=== PATIENT | male | born 1940 | race Caucasian/White ===

== ENCOUNTER 2018-10-04 10:22 | Emergency (ER) | payer MEDICARE, MEDICAID ==
[~2018-10-04] VITALS: Ht 177.8 cm; Wt 72.6 kg
--- NOTE | 2018-10-04 10:23 | NUR ---
ARRIVED VIA EMS. PT TRANSFERRED TO CT BY [facility] AND EMS.
--- NOTE | 2018-10-04 10:50 | Diagnostic Imaging Report ---
Clinical indication: Patient fell backwards. Exam: Axial CT scan cervical spine performed without IV contrast. Coronal and sagittal reformatted images are created. Comparison: None. Findings: There is no acute cervical spine fracture. There is multilevel cervical spine degenerative disease including mild kyphosis of the cervical spine posture centered at the C5-C6 level. There is grade 1 anterolisthesis C3 on C4 and C4 on C5 with no pars defect and is likely degenerative. There is multilevel cervical spine vertebral body spurs and facet arthropathy. There is at least severe right C3-C4 neural foramen narrowing and moderate left C5-C6 neural foramen narrowing due to uncinate spurs of facet arthropathy. There is at least mild to moderate central canal narrowing seen throughout cervical spine. Prominent vascular structure seen posteriorly along the C3 vertebra. There is no prevertebral soft tissue swelling. The neck soft tissue structures show no significant abnormality. Visualized upper lung rodriguez show mild atelectasis or scarring. Impression: 1: There is no acute cervical spine fracture. 2: There is multilevel cervical spine degenerative disease including grade 1 anterolisthesis of C3 on C4 and C4 on C5. Dictated by: Dictated on workstation # [id number]
[2018-10-04 11:01] LABS: BASOPHILS % (AUTO) 1 % (0-10); EOSINOPHILS # (AUTO) 0.2 10^3/uL (0.0-0.3); EOSINOPHILS % (AUTO) 3 % (0-10); HEMATOCRIT 32 % (40-54); HEMOGLOBIN 10.4 G/DL (13.3-17.7); LYMPHOCYTES # (AUTO) 1.3 X 10^3 (1.0-4.0); LYMPHOCYTES % (AUTO) 19 % (12-44); MEAN CORPUSCULAR HEMOGLOBIN 30 PG (25-34); MEAN CORPUSCULAR HGB CONC 32 G/DL (32-36); MEAN CORPUSCULAR VOLUME 91 FL (80-99); MEAN PLATELET VOLUME 10.1 FL (7.4-10.4); MONOCYTES # (AUTO) 0.4 X 10^3 (0.0-1.0); MONOCYTES % (AUTO) 6 % (0-12); NEUTROPHILS # (AUTO) 4.7 X 10^3 (1.8-7.8); NEUTROPHILS % (AUTO) 72 % (42-75); PLATELET COUNT 153 10^3/uL (130-400); RED CELL DISTRIBUTION WIDTH 13.3 % (10.0-14.5); WHITE BLOOD COUNT 6.6 10^3/uL (4.3-11.0)
--- NOTE | 2018-10-04 11:05 | Diagnostic Imaging Report ---
CLINICAL INDICATION: Patient walking to breakfast and fell backwards hitting head. The patient had loss of consciousness for 3-4 minutes with laceration to the back of the head with some slurred speech. EXAM: Axial CT scan of the brain performed without IV contrast. COMPARISON: None. FINDINGS: There is a small area of hyperdensity in the interpeduncular fossa region, concerning for minimal subarachnoid blood. There is an area of high density involving the right frontal region seen on axial sequence 2/image 11, suspected to represent volume averaging from the calvarium. A dural based mass in this area such as meningioma cannot be completely excluded. Suspected volume averaging of low density in the right sub-putamen region is seen on series 2/image 12. Otherwise, there is no other evidence of acute cerebral infarct, intracranial hemorrhage, or gross mass effect. There is diffuse brain parenchymal volume loss with the temporal lobes affected the most. There ae diffuse patchy and mildly confluent areas of low-attenuation white matter changes involving both cerebral hemispheres, likely representing chronic small vessel ischemic disease. There is normal taylor/white matter distinction. There is no significant midline shift or herniation. There is no evidence of hydrocephalus. The basal cisterns are unremarkable. There is a small to moderate-sized area of extracranial soft tissue swelling involving the posterior aspect of the head related to trauma. There is no skull fracture. Otherwise, the skull, extracranial soft tissue, and orbits are unremarkable. The paranasal sinuses are unremarkable. The temporal bones show no significant abnormality. IMPRESSION: 1. There is a small area of subarachnoid blood in the interpeduncular fossa region, suspected to be related to recent trauma. 2. There is extracranial soft tissue swelling involving the posterior aspect of the head. There is no skull fracture. 3. There is no definite CT evidence of interval acute cerebral infarction seen. Given the diffuse low attenuation changes throughout the brain parenchyma which can obscure more subtle findings, if there is clinical concern for acute cerebral infarction, MRI of the brain would better evaluate. 4. Suspected volume averaging in the right frontal lobe and right sub-putamen region. 5. The results of this report were discussed with Dr. Soto Calles via the telephone on 10/04/2018 at 1058 hours. Dictated by: Dictated on workstation # [id number]
[2018-10-04 11:20] LABS: ALANINE AMINOTRANSFERASE 11 U/L (0-55); ALBUMIN 3.4 GM/DL (3.2-4.5); ALKALINE PHOSPHATASE 83 U/L (40-136); BILIRUBIN,TOTAL 0.4 MG/DL (0.1-1.0); BUN/CREATININE RATIO 29; CALCIUM 8.5 MG/DL (8.5-10.1); CARBON DIOXIDE 22 MMOL/L (21-32); CHLORIDE 108 MMOL/L (98-107); CREATININE SERUM 1.58 MG/DL (0.60-1.30); GFR ESTIMATED 43; GLUCOSE 94 MG/DL (70-105); POTASSIUM 5.2 MMOL/L (3.6-5.0); SODIUM 141 MMOL/L (135-145); TOTAL PROTEIN 6.2 GM/DL (6.4-8.2)
--- NOTE | 2018-10-04 11:31 | Diagnostic Imaging Report ---
Clinical indication: Patient fell and had positive loss of consciousness and took about three to four minutes to wake up. Exam: Portable chest x-ray upright view. Comparisons: None. Findings: Lungs/pleura: Suspected mild bibasilar atelectasis, but superimposed infiltrate cannot be completely excluded. Otherwise, lungs are clear. There is no pneumothorax. There is no pleural effusion. Mediastinum: Unremarkable. Pulmonary vasculature: Unremarkable. Heart: Heart size is upper limits of normal. Bones/extrathoracic soft tissue: There are small degenerative spurs involving the thoracic spine. Impression: 1: There is mild bibasilar atelectasis, but superimposed infiltrate cannot be completely excluded. 2: Upper limits of normal heart size. Dictated by: Dictated on workstation # [id number]
[2018-10-04 11:39] LABS: INR 1.2 (0.8-1.4); PROTHROMBIN TIME PATIENT 15.3 SEC (12.2-14.7)
--- NOTE | 2018-10-04 11:40 | NUR ---
OTTONIEL AT [facility] CONTACTED. NOTIFIED OF HEAD BLEED. OBTAINED PHONE NUMBER FOR PT'S SISTER AND INFO GIVEN TO
[2018-10-04] MEDS ORDERED: NS IV 1000 ML 1,000 ML IV ONE (11:53)
--- NOTE | 2018-10-04 12:24 | ED Fall/Injury ---
General Chief Complaint: Neuro-Stroke Like Symptoms Stated Complaint: FALL Nursing Triage Note: ARRIVED TO ROOM 02 AFTER BEING TAKEN TO CT BY CASING INSPECTOR. TALKED WITH STAFF AT [facility]. THEY STATE SHE WAS ALERTED TO A PT THAT HAD FELL UPON HER ARRIVAL PT HAD POSITIVE LOC AND TOOK ABOUT 3-4 MINUTES TO WAKE UP. STAFF REPORTS PT IS ALWAYS PLEASENTLY CONFUSED BUT UP AD JUANITO. UPON RETURNING TO ROOM 02 PT AWAKE ET ORIENTED X2. Source: patient, EMS, long-term records Exam Limitations: no limitations History of Present Illness Date Seen by Provider: Oct 04, 2018 Time Seen by Provider: 10:19 Initial Comments This 78-year-old gentleman presents to emergency room from the long-term via EMS after having a fall in the hallway. He struck the back of his head and has a laceration in the area. He had loss of consciousness for about 3-4 minutes. He has confusion from dementia at baseline. He is alert and conversational on arrival. EMS reported facial droop and a stroke activation was therefore paged. Patient was taken promptly to CT scan. C-collar was in place. Patient complains of head and neck pain. He denies any other pain or injury. Occurred: just prior to arrival Allergies and Home Medications Allergies Coded Allergies: No Known Drug Allergies (Unverified , 10/04/18) Patient Home Medication List Home Medication List Reviewed: Yes Review of Systems Review of Systems Constitutional: no symptoms reported Eyes: No Symptoms Reported Ears, Nose, Mouth, Throat: no symptoms reported Respiratory: no symptoms reported Cardiovascular: no symptoms reported Gastrointestinal: no symptoms reported Genitourinary: no symptoms reported Musculoskeletal: see HPI Skin: see HPI Psychiatric/Neurological: See HPI Past Altfhqz-Nmrqck-Psjxya Hx Past Med/Social Hx: Reviewed and Corrections made Patient Social History Recent Foreign Travel: No Contact w/Someone Who Travel: No Recent Infectious Disease Expo: No Past Medical History Surgeries: No (unknown) Respiratory: Yes COPD Cardiac: Yes Hypertension Neurological: Yes Dementia Genitourinary: No Gastrointestinal: Yes Chronic Constipation Musculoskeletal: Yes Arthritis Endocrine: No HEENT: No Cancer: No Did You Recieve Any Treatments: No Psychosocial: No Integumentary: No Physical Exam Vital Signs Vital Signs - First Documented 10/04/18 10:46 Temp 98.0 Pulse 56 Resp 16 B/P (MAP) 192/92 (125) Pulse Ox 99 O2 Delivery Room Air Capillary Refill : Less Than 3 Seconds Height, Weight, BMI Height: 5'10.00" Weight: 160lbs. oz. 72.745819vt; BMI Method:Estimated General Appearance: WD/WN, no apparent distress HEENT: PERRL/EOMI, pharynx normal, other (4 cm laceration on the right posterior scalp) Neck: normal inspection, tender midline, other (c-collar in place) Cardiovascular: regular rate, rhythm, no edema, no murmur Respiratory: lungs clear, normal breath sounds, no respiratory distress, no accessory muscle use Gastrointestinal: normal bowel sounds, non tender, soft Back: normal inspection Extremities: non-tender, normal inspection, no pedal edema, pelvis stable Neurologic/Psychiatric: no motor/sensory deficits, alert, normal mood/affect, other (patient alert to person and conversational but confused about place, date , time, age, etc. This is baseline per family's report.) Skin: normal color, warm/dry, other (laceration posterior scalp) Odalys Coma Score Best Eye Response: (4) Open Spontaneously Best Verbal Response: (4) Confused Conversation Best Motor Response: (6) Obeys Commands [place] Total: 14 Procedures/Interventions Wound Location: Scalp Other Wound Location Right posterior scalp Wound Length (cm): 4 Wound's Depth, Shape: linear, irregular, sub Q Wound Explored: clean Irrigated w/ Saline (ccs): 400 Betadine Prep?: Yes Anesthesia: Lidocaine w/ Epi Staple Repair: Stapler Skin Precise Sterile Dressing Applied?: No Progress Skin was cleaned with alcohol. Wound was anesthetized with approximately 2 mL of lidocaine with epinephrine. Wound was then scrubbed with chlorhexidine and sterile saline. It was then irrigated with sterile saline and a syringe. Betadine was applied and wound was approximated with 3 dano. Patient tolerated the procedure well. Progress/Results/Core Measures Results/Orders Lab Results Laboratory Tests Test 10/04/18 10:50 10/04/18 11:03 10/04/18 12:30 Range/Units White Blood Count 6.6 4.3-11.0 10^3/uL Red Blood Count 3.53 L 4.35-5.85 10^6/uL Hemoglobin 10.4 L 13.3-17.7 G/DL Hematocrit 32 L 40-54 % Mean Corpuscular Volume 91 80-99 FL Mean Corpuscular Hemoglobin 30 25-34 PG Mean Corpuscular Hemoglobin Concent 32 32-36 G/DL Red Cell Distribution Width 13.3 10.0-14.5 % Platelet Count 153 130-400 10^3/uL Mean Platelet Volume 10.1 7.4-10.4 FL Neutrophils (%) (Auto) 72 42-75 % Lymphocytes (%) (Auto) 19 12-44 % Monocytes (%) (Auto) 6 0-12 % Eosinophils (%) (Auto) 3 0-10 % Basophils (%) (Auto) 1 0-10 % Neutrophils # (Auto) 4.7 1.8-7.8 X 10^3 Lymphocytes # (Auto) 1.3 1.0-4.0 X 10^3 Monocytes # (Auto) 0.4 0.0-1.0 X 10^3 Eosinophils # (Auto) 0.2 0.0-0.3 10^3/uL Basophils # (Auto) 0.0 0.0-0.1 10^3/uL Prothrombin Time 15.3 H 12.2-14.7 SEC INR Comment 1.2 0.8-1.4 Activated Partial Thromboplast Time 34 24-35 SEC D-Dimer 0.00-0.49 UG/ML Sodium Level 141 135-145 MMOL/L Potassium Level 5.2 H 3.6-5.0 MMOL/L Chloride Level 108 H 98-107 MMOL/L Carbon Dioxide Level 22 21-32 MMOL/L Anion Gap 11 5-14 MMOL/L Blood Urea Nitrogen 46 H 7-18 MG/DL Creatinine 1.58 H 0.60-1.30 MG/DL Estimat Glomerular Filtration Rate 43 BUN/Creatinine Ratio 29 Glucose Level 94 70-105 MG/DL Calcium Level 8.5 8.5-10.1 MG/DL Corrected Calcium 9.0 8.5-10.1 MG/DL Total Bilirubin 0.4 0.1-1.0 MG/DL Aspartate Amino Transf (AST/SGOT) 16 5-34 U/L Alanine Aminotransferase (ALT/SGPT) 11 0-55 U/L Alkaline Phosphatase 83 40-136 U/L Troponin I < 0.028 <0.028 NG/ML Total Protein 6.2 L 6.4-8.2 GM/DL Albumin 3.4 3.2-4.5 GM/DL Glucometer 98 70-110 MG/DL Urine Color YELLOW Urine Clarity CLEAR Urine pH 6 5-9 Urine Specific Silva 1.015 L 1.016-1.022 Urine Protein 3+ H NEGATIVE Urine Glucose (UA) NEGATIVE NEGATIVE Urine Ketones NEGATIVE NEGATIVE Urine Nitrite NEGATIVE NEGATIVE Urine Bilirubin NEGATIVE NEGATIVE Urine Urobilinogen NORMAL NORMAL MG/DL Urine Leukocyte Esterase NEGATIVE NEGATIVE Urine RBC (Auto) 5+ H NEGATIVE Urine RBC >100 H /HPF Urine WBC RARE /HPF Urine Crystals NONE /LPF Urine Bacteria NEGATIVE /HPF Urine Casts NONE /LPF Urine Mucus NEGATIVE /LPF Urine Culture Indicated NO My Orders Orders - SOTO CALLES MD Ct Head Wo-R/O Stroke (10/04/18 10:25) Ct Cervical Spine Wo (10/04/18 10:25) Cbc With Automated Diff (10/04/18 10:46) Protime With Inr (10/04/18 10:46) Partial Thromboplastin Time (10/04/18 10:46) Comprehensive Metabolic Panel (10/04/18 10:46) Fibrin Degradation Products (10/04/18 10:46) Troponin I (10/04/18 10:46) Ua Culture If Indicated (10/04/18 10:46) Chest 1 View, Ap/Pa Only (10/04/18 10:46) Ekg Tracing (10/04/18 10:46) Nothing By Mouth (10/04/18 Dinner) Accucheck Stat ONCE (10/04/18 10:46) Saline Lock/Iv-Start (10/04/18 10:46) Saline Lock/Iv-Start (10/04/18 10:46) Vital Signs Stroke Patient Q15M (10/04/18 10:46) O2 (10/04/18 10:46) Intake & Output 06,14,22 (10/04/18 10:46) Monitor-Rhythm Ecg Trace Only (10/04/18 10:46) Dysphagia Screening Tool (10/04/18 10:46) Post Thrombolytic Adminstratio (10/04/18 10:46) Lipid Panel (10/05/18 06:00) Ns Iv 1000 Ml (Sodium Chloride 0.9%) (10/04/18 11:53) Hydralazine Injection (Apresoline Inject (10/04/18 13:00) Medications Given in ED Current Medications Medications Dose Ordered Sig/Parisa Route Start Time Stop Time Status Last Admin Dose Admin Hydralazine HCl 10 mg ONCE ONCE IV 10/04/18 13:00 10/04/18 13:01 DC 10/04/18 13:20 10 MG Sodium Chloride 1,000 ml @ 0 mls/hr Q0M ONCE IV 10/04/18 11:53 10/04/18 11:55 DC 10/04/18 13:00 1,000 MLS/HR Vital Signs/I&O 10/04/18 10:46 Temp 98.0 Pulse 56 Resp 16 B/P (MAP) 192/92 (125) Pulse Ox 99 O2 Delivery Room Air Blood Pressure Mean: 125 FSBG Bedside Testing Finger Stick Blood Glucose: 98 Progress Progress Note : Progress Note Stroke activation was paged. NIH stroke score was 4 based on difficulty interpreting pictures, reading, and some orientation confusion. These deficits are baseline per patient's sister and [id number]. CT demonstrated a small subarachnoid bleed. Patient remained stable throughout his ER stay. He received a liter of IV fluid as his creatinine and potassium were mildly elevated. He was rather hypertensive and was treated with hydralazine at the request of Dr. Song at [facility], receiving facility. At 13:45 his blood pressure improved to 155/71. Due to lack of neurosurgical services and bed availability at this hospital, patient is being transferred to [facility] with Dr. Song graciously accepting transfer. Patient's DURABLE POWER OF PRODUCT MANAGEMENT SPECIALIST could not be reached. As an alternative, I discussed the situation with his sister, Johnson White, who consented to transfer. Laceration on the scalp was cleaned and 3 dano were placed. Patient tolerated the procedure well. He had no decline in neuro status during his ER stay. Zamora catheter was placed. C-collar was cleared after review of CT report. Patient was not a TPA candidate as there was no clear evidence of thrombotic stroke and there was evidence of subarachnoid bleed. The facial droop observed by EMS was not observed by this provider. Patient did not receive a tetanus immunization at this ER and will need that at the receiving facility. Initial ECG Impression Date: Oct 04, 2018 Initial ECG Impression Time: 10:53 Initial ECG Rate: 51 Initial ECG Rhythm: Normal Sinus Initial ECG Intervals: Normal Initial ECG Impression: Normal Comment Normal sinus rhythm with no ST elevation or depression. No abnormal intervals or axis deviation. Diagnostic Imaging Diagonstic Imaging: CT Plain Films/CT/US/NM/MRI: head Comments CT head viewed by me and report reviewed. See report below: NAME: SKYLAR CAMARILLO [facility] REC#: [id number] PT STATUS: REG ER : 1940 PHYSICIAN: SOTO CALLES MD ADMIT DATE: 10/04/18/ER Draft Date of Exam:10/04/18 CT HEAD WO-R/O STROKE CLINICAL INDICATION: Patient walking to breakfast and fell backwards hitting head. The patient had loss of consciousness for 3-4 minutes with laceration to the back of the head with some slurred speech. EXAM: Axial CT scan of the brain performed without IV contrast. COMPARISON: None. FINDINGS: There is a small area of hyperdensity in the interpeduncular fossa region, concerning for minimal subarachnoid blood. There is an area of high density involving the right frontal region seen on axial sequence 2/image 11, suspected to represent volume averaging from the calvarium. A dural based mass in this area such as meningioma cannot be completely excluded. Suspected volume averaging of low density in the right sub-putamen region is seen on series 2/image 12. Otherwise, there is no other evidence of acute cerebral infarct, intracranial hemorrhage, or gross mass effect. There is diffuse brain parenchymal volume loss with the temporal lobes affected the most. There ae diffuse patchy and mildly confluent areas of low-attenuation white matter changes involving both cerebral hemispheres, likely representing chronic small vessel ischemic disease. There is normal taylor/white matter distinction. There is no significant midline shift or herniation. There is no evidence of hydrocephalus. The basal cisterns are unremarkable. There is a small to moderate-sized area of extracranial soft tissue swelling involving the posterior aspect of the head related to trauma. There is no skull fracture. Otherwise, the skull, extracranial soft tissue, and orbits are unremarkable. The paranasal sinuses are unremarkable. The temporal bones show no significant abnormality. IMPRESSION: 1. There is a small area of subarachnoid blood in the interpeduncular fossa region, suspected to be related to recent trauma. 2. There is extracranial soft tissue swelling involving the posterior aspect of the head. There is no skull fracture. 3. There is no definite CT evidence of interval acute cerebral infarction seen. Given the diffuse low attenuation changes throughout the brain parenchyma which can obscure more subtle findings, if there is clinical concern for acute cerebral infarction, MRI of the brain would better evaluate. 4. Suspected volume averaging in the right frontal lobe and right sub-putamen region. 5. The results of this report were discussed with Dr. Soto Calles via the telephone on 10/04/2018 at 1058 hours. Dictated on workstation # [id number] Dict: 10/04/18 1041 Trans: 10/04/18 1104 [id number] Interpreted by: SARA DELAROSA MD Diagonstic Imaging: CT Plain Films/CT/US/NM/MRI: c-spine Comments CT C-spine viewed by me and report reviewed. See report below: NAME: SKYLAR CAMARILLO [facility] REC#: [id number] PT STATUS: REG ER : 1940 PHYSICIAN: SOTO CALLES MD ADMIT DATE: 10/04/18/ER Draft Date of Exam:10/04/18 CT CERVICAL SPINE WO Clinical indication: Patient fell backwards. Exam: Axial CT scan cervical spine performed without IV contrast. Coronal and sagittal reformatted images are created. Comparison: None. Findings: There is no acute cervical spine fracture. There is multilevel cervical spine degenerative disease including mild kyphosis of the cervical spine posture centered at the C5-C6 level. There is grade 1 anterolisthesis C3 on C4 and C4 on C5 with no pars defect and is likely degenerative. There is multilevel cervical spine vertebral body spurs and facet arthropathy. There is at least severe right C3-C4 neural foramen narrowing and moderate left C5-C6 neural foramen narrowing due to uncinate spurs of facet arthropathy. There is at least mild to moderate central canal narrowing seen throughout cervical spine. Prominent vascular structure seen posteriorly along the C3 vertebra. There is no prevertebral soft tissue swelling. The neck soft tissue structures show no significant abnormality. Visualized upper lung rodriguez show mild atelectasis or scarring. Impression: 1: There is no acute cervical spine fracture. 2: There is multilevel cervical spine degenerative disease including grade 1 anterolisthesis of C3 on C4 and C4 on C5. Dictated on workstation # [id number] Dict: 10/04/18 1041 Trans: 10/04/18 1050 CV [id number] Interpreted by: SARA DELAROSA MD Diagonstic Imaging: Xray Plain Films/CT/US/NM/MRI: chest Comments NAME: SKYLAR HARRINGTON [facility] REC#: [id number] PT STATUS: REG ER : 1940 PHYSICIAN: SOTO CALLES MD ADMIT DATE: 10/04/18/ER Draft Date of Exam:10/04/18 CHEST 1 VIEW, AP/PA ONLY Clinical indication: Patient fell and had positive loss of consciousness and took about three to four minutes to wake up. Exam: Portable chest x-ray upright view. Comparisons: None. Findings: Lungs/pleura: Suspected mild bibasilar atelectasis, but superimposed infiltrate cannot be completely excluded. Otherwise, lungs are clear. There is no pneumothorax. There is no pleural effusion. Mediastinum: Unremarkable. Pulmonary vasculature: Unremarkable. Heart: Heart size is upper limits of normal. Bones/extrathoracic soft tissue: There are small degenerative spurs involving the thoracic spine. Impression: 1: There is mild bibasilar atelectasis, but superimposed infiltrate cannot be completely excluded. 2: Upper limits of normal heart size. Dictated on workstation # [id number] Dict: 10/04/18 1127 Trans: 10/04/18 1130 CV [id number] Interpreted by: SARA DELAROSA MD Departure Impression Primary Impression: Subarachnoid hemorrhage Additional Impressions: Fall on same level Qualified Codes: W18.30XA - Fall on same level, unspecified, initial encounter Concussion with loss of consciousness <= 30 min Qualified Codes: S06.0X1A - Concussion with loss of consciousness of 30 minutes or less, initial encounter Laceration of scalp Qualified Codes: S01.01XA - Laceration without foreign body of scalp, initial encounter Dementia Qualified Codes: F03.90 - Unspecified dementia without behavioral disturbance Disposition: 02 XFER SHT-TRM HOSP Condition: Stable Transfer Time Spoke to Accepting Phy: 12:[address] Song graciously accepts transfer of the patient to the [facility]. Transfer Time: 13:45 [facility] Method of Transfer: EMS Departure-Patient Inst. Referrals: MIKY CRUZ MD (PCP/Family) Primary Care Physician SOTO CALLES MD Oct 04, 2018 12:24
--- NOTE | 2018-10-04 12:30 | NUR ---
C-COLLAR REMOVED PER DR VERBAL ORDER.
[2018-10-04 12:37] LABS: BILIRUBIN,URINE NEGATIVE (NEGATIVE); CLARITY,URINE CLEAR; COLOR,URINE YELLOW; GLUCOSE, URINE (UA) NEGATIVE (NEGATIVE); KETONES,URINE NEGATIVE (NEGATIVE); LEUKOCYTE ESTERASE ,URINE NEGATIVE (NEGATIVE); NITRITE,URINE NEGATIVE (NEGATIVE); PH,URINE 6 (5-9); PROTEIN,URINE 3+ (NEGATIVE); UROBILINOGEN,URINE NORMAL (NORMAL)
[2018-10-04 12:45] LABS: BACTERIA,URINE NEGATIVE /HPF; RBC,URINE >100 /HPF; WBC,URINE RARE /HPF
[2018-10-04] MEDS ORDERED: hydrALAZINE (APESOLINE) 20 MG/ML VIAL IV ONE (13:00)
[2018-10-04 13:45] VITALS: BP 160/76
== END 2018-10-04 13:45 | disposition short-term general hospital (02) ==
LOC: ER 10:24
DX: S06.6X1A Traumatic subarachnoid hemorrhage with loss of consciousness of 30 minutes or less, initial encounter (principal); S01.01XA Laceration without foreign body of scalp, initial encounter; F03.90 Unspecified dementia, unspecified severity, without behavioral disturbance, psychotic disturbance, mood disturbance, and anxiety; J44.9 Chronic obstructive pulmonary disease, unspecified; I10 Essential (primary) hypertension; Z87.19 Personal history of other diseases of the digestive system; W01.198A Fall on same level from slipping, tripping and stumbling with subsequent striking against other object, initial encounter
CPT/HCPCS: 12032; 36415; 51702; 70450; 71045; 72125; 80053; 81000; 82962; 84484; 85025; 85379; 85610; 85730; 93041